=== PATIENT | male | born 1935 | race Caucasian/White ===

== ENCOUNTER 2022-02-12 18:18 | Inpatient (IN) | payer BC, OTHER ==
[~2022-02-12] VITALS: Ht 177.8 cm; Wt 63.5 kg
[2022-02-12] MEDS: D5LR 1,000 ML IV SCH (02:00)
[2022-02-12 18:19] VITALS: BP_SYST 115
--- NOTE | 2022-02-12 18:27 | NUR ---
BIB [facility] 1630 BY EMS HOWEVER SON STATES AROUND 2PM. DR CROSS AT BEDSIDE BGM 119. TO CT SCAN ON MONITOR WITH ELBERT SHEPPARD
--- NOTE | 2022-02-12 18:30 | NUR ---
RECEIVED PT AAOX3-4, APHASIC, PT CONFUSED, PERRLA, NO HAND OR FOOT DRIFT, FACIAL SYMMETRY INTACT. RESP E/U. ON R/A. NORMAL S1S2. DENIES N/V/D/C. DISTAL PULSES NORMAL, SKIN INTACT, WARM. VSS. SIDERAILS UP X2.
--- NOTE | 2022-02-12 18:30 | NUR ---
DR. CROSS AT BEDSIDE TO ASSESS PT. CODE STROKE CALLED.
--- NOTE | 2022-02-12 18:32 | NUR ---
CT COMPLETED. BS 119. CXR COMPLETED.
--- NOTE | 2022-02-12 18:41 | NUR ---
IV CATH TO RAC [address], 18G LAC IN PLACE FROM FIELD. EKG COMPLETED.
[2022-02-12 18:44] LABS: BASOPHILS % (AUTO) 0.6 % (0.0-2.0); EOSINOPHILS # (AUTO) 0.1 K/uL (0.0-0.4); EOSINOPHILS % (AUTO) 2.8 % (0.0-4.0); HEMATOCRIT 40.5 % (36-54); LYMPHOCYTES # (AUTO) 1.3 K/uL (1.0-5.5); LYMPHOCYTES % (AUTO) 24.6 % (20.5-51.5); MEAN CORPUSCULAR VOLUME 93 fL (79.0-98.0); MONOCYTES # (AUTO) 0.6 K/uL (0.0-1.0); MONOCYTES % (AUTO) 11.6 % (1.7-9.3); NEUTROPHILS # (AUTO) 3.1 K/uL (1.8-7.7); NEUTROPHILS % (AUTO) 60.4 % (40.0-70.0); PLATELET COUNT (AUTO) 122 K/uL (130-430); RED BLOOD CELL COUNT(AUTO) 4.37 MIL/uL (4.2-6.2); RED CELL DISTRIBUTION WIDTH 13.6 % (9.0-15.0); WHITE BLOOD COUNT (AUTO) 5.1 K/uL (4.8-10.8)
--- NOTE | 2022-02-12 18:45 | NUR ---
TELE NEURO IN PLACE AWAITING MD. PT'S SON AT BEDSIDE.
[2022-02-12] MEDS ORDERED: iohexoL 350 mgI/mL, 100 ML INFUS..BTL IV ONE (18:49)
--- NOTE | 2022-02-12 18:53 | NUR ---
CONSENT SIGNED FOR CTA
[2022-02-12 19:09] LABS: ANION GAP 9 (5-15); CALCIUM 9.6 mg/dL (8.4-11.0); CHLORIDE 102 mmol/L (98-107); CREATININE 1.41 mg/dL (0.55-1.30); GLUCOSE 119 mg/dL (70-99); POTASSIUM 3.9 mmol/L (3.5-5.1); UREA NITROGEN, BLOOD 28 mg/dL (8-21)
--- NOTE | 2022-02-12 19:10 | NUR ---
DR. KUMAR NEUROLOGIST IS ASSESSING PT VIA TELE-NEURO AT THIS TIME.
--- NOTE | 2022-02-12 19:11 | NUR ---
DR. KUMAR STATES PT'S CT LOOKS NON-REMARKABLE, BUT PT APPEARS TO HAVE HAD A STROKE, BUT THE WINDOW FOR TPA HAS PAST. FAMILY AT BEDSIDE AND MADE AWARE.
[2022-02-12 19:14] LABS: PROTHROMBIN TIME 10.4 SECS (9.5-12.5)
[2022-02-12 19:20] LABS: ALANINE AMINOTRANSFERASE 27 U/L (12-78); ALBUMIN 3.7 g/dL (3.4-4.8); ASPARTATE AMINOTRANSFERASE 49 U/L (10-37); TOTAL BILIRUBIN 1.4 mg/dL (0.0-1.0)
--- NOTE | 2022-02-12 19:32 | NUR ---
Troponin 99
[2022-02-12] MEDS ORDERED: ASPIRIN 81 MG TAB.CHEW PO ONE (20:30)
--- NOTE | 2022-02-12 20:41 | NUR ---
Admit bed requested Patient will be admitted to care of [[facility]]. Admitted to [ICU] unit. Diagnosis [ACUTE CVA] Inpatient (Yes or No) [YES] Observation (Yes or No) [NO] Orientation concerns or request close to nursing station (Yes or No) [NO] Covid Status [PEND] On vent or bipap [NO] Isolation requirements [NO] Needs a sitter [NO] From Home (Yes or if No enter name of facility) [HOME] Requires Dialysis (Yes or No) [NO] Med Rec Completed (Yes of No) [NO]
[2022-02-12] MEDS ORDERED: D5LR 1,000 ML IV ONE (20:45)
[2022-02-12] MEDS ORDERED: ENOXAPARIN SODIUM 60 MG/0.6 ML SYRINGE SUBCUT ONE (22:30)
[2022-02-12] MEDS ORDERED: DEXTROSE 50% JECT 50 ML DISP.SYRIN IVP PRN (22:30)
[2022-02-12] MEDS ORDERED: INSULIN REGULAR, HUMAN 100 UNITS/ML, 10 ML VIAL (humuLIN R) SUBCUT PRN (22:30)
[2022-02-12] MEDS ORDERED: ASPIRIN 81 MG TABLET(ECOTRIN) PO ONE (22:30)
[2022-02-12] MEDS ORDERED: PANTOPRAZOLE SODIUM 40 MG/VIAL (PROTONIX) IVP ONE (22:30)
--- NOTE | 2022-02-12 23:24 | NUR ---
Admit bed requested Patient will be admitted to care of ]. Admitted to [TELE] unit. Diagnosis [ACUTE CVA] Inpatient (Yes or No) [YES] Observation (Yes or No) [NO] Orientation concerns or request close to nursing station (Yes or No) [NO] Covid Status [NEG] On vent or bipap [NO] Isolation requirements [NO] Needs a sitter [NO] From Home (Yes or if No enter name of facility) [YES] Requires Dialysis (Yes or No) [NO] Med Rec Completed (Yes of No) [NO]
--- NOTE | 2022-02-12 23:27 | NUR ---
Troponin 109
[2022-02-12] MEDS ORDERED: THIAMINE HCL 100 MG in NS 50 ML IV ONE (23:45)
[2022-02-12] MEDS ORDERED: ENOXAPARIN SODIUM 40 MG/0.4 ML SYRINGE SUBCUT ONE (23:45)
[2022-02-12] MEDS ORDERED: ENOXAPARIN SODIUM 60 MG/0.6 ML SYRINGE ONE (23:54)
--- NOTE | 2022-02-13 01:15 | NUR ---
Patient will be admitted to care of . Admitted to TELE unit. Will go to room 113B. Belongings list completed. Complete and up to date summary report printed. SBAR report to be given at bedside with opportunity for questions.
[2022-02-13 01:28] VITALS: BP_SYST 136
--- NOTE | 2022-02-13 01:51 | NUR ---
CONSULTATION PAGED/CALLED Reason for Consultation: elevated trop Person Who was Notified: cas Consulting Physician: shola Supervisor [employer]ation Specialty: Ordering Physician: santos
--- NOTE | 2022-02-13 02:50 | NUR ---
ADMISSION NOTE Received patient from ER via gurney. Patient admitted with diagnosis of acute CVA. Patient is awake, alert, oriented X 4. Patient oriented to hospital room, call light, toileting, pain management and safety-teach back done. Patient informed that their room number is 113B. Personal belongings checked and Belongings List documented. Call light within reach. Addendum: 02/13/22 at 0251 by Maria Antonia Garcia RN TIME @0120, NOT 0250
[2022-02-13] MEDS ORDERED: THIAMINE HCL 100 MG/ML VIAL ONE (02:54)
[2022-02-13 04:09] LABS: BASOPHILS % (AUTO) 0.7 % (0.0-2.0); EOSINOPHILS # (AUTO) 0.2 K/uL (0.0-0.4); EOSINOPHILS % (AUTO) 3.5 % (0.0-4.0); HEMATOCRIT 37.1 % (36-54); LYMPHOCYTES # (AUTO) 1.1 K/uL (1.0-5.5); LYMPHOCYTES % (AUTO) 22.3 % (20.5-51.5); MEAN CORPUSCULAR VOLUME 93 fL (79.0-98.0); MONOCYTES # (AUTO) 0.7 K/uL (0.0-1.0); MONOCYTES % (AUTO) 12.8 % (1.7-9.3); NEUTROPHILS # (AUTO) 3.1 K/uL (1.8-7.7); NEUTROPHILS % (AUTO) 60.7 % (40.0-70.0); PLATELET COUNT (AUTO) 115 K/uL (130-430); RED CELL DISTRIBUTION WIDTH 13.3 % (9.0-15.0); WHITE BLOOD COUNT (AUTO) 5.1 K/uL (4.8-10.8)
[2022-02-13 04:21] LABS: ANION GAP 5 (5-15); CALCIUM 9.2 mg/dL (8.4-11.0); CHLORIDE 103 mmol/L (98-107); CREATININE 1.28 mg/dL (0.55-1.30); GLUCOSE 108 mg/dL (70-99); POTASSIUM 3.8 mmol/L (3.5-5.1); UREA NITROGEN, BLOOD 22 mg/dL (8-21)
[2022-02-13 04:27] LABS: ALANINE AMINOTRANSFERASE 21 U/L (12-78); ASPARTATE AMINOTRANSFERASE 37 U/L (10-37); TOTAL BILIRUBIN 1.6 mg/dL (0.0-1.0)
[2022-02-13 05:46] LABS: CHOLESTEROL 177 mg/dL (<200); HDL CHOLESTEROL 67 mg/dL (>45); LDL CHOLESTEROL 96 mg/dL (<100); TRIGLYCERIDES 120 mg/dL (30-150)
--- NOTE | 2022-02-13 05:57 | NUR ---
CONSULTATION PAGED/CALLED Reason for Consultation: cva Person Who was Notified: dr valdez via text Consulting Physician: dr valdez Tonsorial Artist Specialty: Ordering Physician: santos
[2022-02-13 06:38] LABS: BILIRUBIN,URINE NEGATIVE (NEGATIVE); CLARITY/URINE CLEAR (CLEAR); COLOR,URINE YELLOW (YELLOW); GLUCOSE,URINE NEGATIVE (NEGATIVE); KETONES,URINE NEGATIVE (NEGATIVE); LEUKOCYTE ESTERASE ,URINE NEGATIVE (NEGATIVE); NITRITE, URINE NEGATIVE (NEGATIVE); PH,URINE 6.5 (5.0-8.0); PROTEIN URINE NEGATIVE (NEGATIVE); UROBILINOGEN,URINE 0.2 (0.2-1.0)
[2022-02-13 06:39] LABS: BLOOD, URINE TRACE (NEGATIVE)
[2022-02-13 06:44] LABS: BACTERIA,URINE None Seen /HPF (None Seen); RBC,URINE 0-3 /HPF (0-3); WBC,URINE 0-3 /HPF (0-3)
--- NOTE | 2022-02-13 07:00 | NUR ---
Closing note Pt is lying in bed, eyes closed. No s/s of respiratory distress. Breathing even and unlabored on RA. No hand or foot drift, no facial drooping, pt can move all extremities and walks with steady gait. All needs met throughout shift. Fall and safety precautions in place with bed in lowest position, bed alarm on, and call light within reach
--- NOTE | 2022-02-13 07:30 | NUR ---
OPENING NOTE PATIENT RECEIVED LYING IN BED, AWAKE AND ALERT, NO S/S OF ACUTE DISTRESS, DENIES PAIN. BREATHING EVEN AND UNLABORED. IV INFUSING WELL WITH SITE REMAINS PATENT. ENCOURAGED TO USE CALL LIGHT FOR ASSISTANCE.
[2022-02-13 08:00] VITALS: BP_SYST 126
[2022-02-13] MEDS: D5LR 1,000 ML IV SCH ×2 (08:30→11:39)
[2022-02-13] MEDS ORDERED: THIAMINE HCL 100 MG TABLET PO SCH (09:00)
[2022-02-13] MEDS ORDERED: ENOXAPARIN SODIUM 60 MG/0.6 ML SYRINGE SUBCUT SCH (09:00)
[2022-02-13] MEDS ORDERED: ENOXAPARIN SODIUM 40 MG/0.4 ML SYRINGE SUBCUT SCH (09:00)
[2022-02-13] MEDS ORDERED: ASPIRIN 81 MG TABLET(ECOTRIN) PO SCH (09:00)
[2022-02-13] MEDS ORDERED: NEPHROVITE, (FOLIC ACID/VITAMIN B COMP W-C 1 TAB) PO SCH (09:00)
[2022-02-13] MEDS ORDERED: ATORVASTATIN 10 MG TABLET PO SCH (09:00)
[2022-02-13] MEDS ORDERED: PANTOPRAZOLE SODIUM 40 MG/VIAL (PROTONIX) IVP SCH (09:00)
--- NOTE | 2022-02-13 11:19 | NUR ---
INDEPENDENT FUNCTIONAL MOBILITY. HE IS SAFE TO AMBULATE WITH NURSING SUPERVISION. NO NEED FOR FURTHER PHYSICAL THERAPY.
[2022-02-13 12:00] VITALS: BP_SYST 124
--- NOTE | 2022-02-13 13:40 | NUR ---
DIET MECHANICAL SOFT PER DR. VALIENTE.
--- NOTE | 2022-02-13 15:16 | NUR ---
IV NOTES: IV RE SITED AT RIGHT FOREARM USING G#22,CONNECTED PATIENT BACK TO IV FLUIDS ORDERED.
[2022-02-13 16:00] VITALS: BP_SYST 127
--- NOTE | 2022-02-13 16:00 | NUR ---
MD HOLLIDAY AT PT'S BEDSIDE WITH FAMILY MEMBER, ASSESSING PT.
--- NOTE | 2022-02-13 16:51 | NUR ---
ST EVALUATION COMPLETED. ST TX NOT INDICATED AT THIS TIME. RECOMMEND PO DIET OF MECHANICAL SOFT AND THIN LIQUIDS. DISTANT SUPERVISION AND FULL ASPIRATION PRECAUTIONS.
[2022-02-13] MEDS ORDERED: LIP10 PO (17:03)
[2022-02-13] MEDS ORDERED: Aspirin Ec PO (17:03)
--- NOTE | 2022-02-13 17:48 | NUR ---
Cardio Paged: Spoke with Dr. Leon and cleared for discharge home.
[2022-02-13 18:00] VITALS: BP_SYST 127
--- NOTE | 2022-02-13 18:02 | NUR ---
Neuro Paged: Spoke with Dr. Zacarias Gregg and cleared patient to discharge home.
--- NOTE | 2022-02-13 18:40 | NUR ---
D/C Patient Patient given medication reconciliation form and D/C instructions. Exit Care provided. Patient verbalized understanding. MD discussed with patient and family the results and treatment provided. Ambulatory with steady gait for discharge to home. Patient in stable condition, ID band removed. IV catheter removed, intact and dressing applied, no active bleeding. Patient educated on pain management. All belongings sent with patient.
[2022-02-14 07:06] LABS: % FREE PSA 26.1 % (.); FREE PSA 0.81 ng/mL; PROSTATE SPECIFIC AG TOTAL 3.1 ng/mL (0.0-4.0)
--- NOTE | 2022-02-14 15:55 | NUR ---
Discharge Planning: DCP faxed pt referral for home health to [facility] [phone], patent PCP Anthony Cantor [phone]. DCP to follow up
--- NOTE | 2022-02-15 10:01 | NUR ---
Discharge Planning: DCP followed up [facility] [phone] accepted pt.
== END 2022-02-13 19:37 | disposition home health service (06) | DRG 69 ==
LOC: SED 18:18 → SIC 20:33 → STU 02-13 01:15
PROVIDERS: ADMIT Internal Medicine; ATTEND Internal Medicine
PROC: 4A10X4Z Monitoring of Central Nervous Electrical Activity, External Approach (ICD-10-PCS; principal; 2022-02-13)
DX: G45.9 Transient cerebral ischemic attack, unspecified (principal); N17.0 Acute kidney failure with tubular necrosis; E44.1 Mild protein-calorie malnutrition; R47.01 Aphasia; E86.0 Dehydration; R00.1 Bradycardia, unspecified; N40.0 Benign prostatic hyperplasia without lower urinary tract symptoms; F17.200 Nicotine dependence, unspecified, uncomplicated; Z20.822 Contact with and (suspected) exposure to COVID-19; Z79.82 Long term (current) use of aspirin; Z68.20 Body mass index [BMI] 20.0-20.9, adult
CPT/HCPCS: 36415; 70450-TC; 70496; 70498; 70551; 71045; 76376; 76770; 80053; 80061; 81000; 82962; 83036; 83735; 84153; 84484; 85025; 85610-TC; 85730-TC; 92610-GN; 93005; 93306; 95816; 99285; C9113; J1650; J3411; Q9967